=== PATIENT | female | born 1970 | race Caucasian/White ===

== ENCOUNTER 2019-08-19 08:16 | Day surgery (SDC) | payer OTHER ==
[~2019-08-19] VITALS: Ht 167.6 cm; Wt 59.0 kg
[2019-08-19] MEDS ORDERED: fentaNYL 0.05 MG/ML VIAL ONE (09:30)
[2019-08-19] MEDS ORDERED: LIDOCAINE 2% 100 MG/5 ML UJET TP ONE (09:30)
[2019-08-19] MEDS ORDERED: MIDAZOLAM 2 MG/2 ML VIAL ONE ×2 (10:13→10:14)
[2019-08-19] MEDS ORDERED: MIDAZOLAM 2 MG/2 ML VIAL IVP ONE (12:00)
[2019-08-19] MEDS ORDERED: fentaNYL 0.05 MG/ML VIAL IVP ONE (12:00)
== END 2019-08-19 11:15 | disposition home or self-care (01) ==
LOC: MDS 08:16 → MMU 08:17 → MDS 11:15
PROVIDERS: ATTEND Internal Medicine Gastroenterology
DX: Z12.11 Encounter for screening for malignant neoplasm of colon (principal); D12.3 Benign neoplasm of transverse colon; D12.4 Benign neoplasm of descending colon; K64.8 Other hemorrhoids
CPT/HCPCS: 45385; J2250; J3010